=== PATIENT | female | born 1950 | race Caucasian/White ===

== ENCOUNTER 2021-03-09 10:58 | Outpatient (CLI) | payer MEDICARE ==
[2021-03-10 11:50] LABS: SARS-CoV-2 PCR by NAA Not Detected (NotDetected)
== END 2021-03-09 10:59 | disposition home or self-care (01) ==
LOC: CSHLAB 10:58
PROVIDERS: ATTEND Surgery
DX: Z20.822 Contact with and (suspected) exposure to COVID-19 (principal); C25.9 Malignant neoplasm of pancreas, unspecified
CPT/HCPCS: U0003; U0005

== ENCOUNTER 2021-03-11 05:47 | Day surgery (SDC) | payer MEDICARE ==
[2021-03-06 14:56] VITALS: BMI 18.8
[2021-03-11] MEDS ORDERED: Bupivacaine PF 0.5% 30 ML VIAL ONE (06:27)
[2021-03-11] MEDS ORDERED: EPINEPHrine 1 MG/ML AMP ONE (06:27)
[2021-03-11] MEDS ORDERED: Lidocaine 1% MPF 2 ML VIAL ONE (06:42)
[2021-03-11] MEDS ORDERED: Fentanyl 100 MCG/2 ML VIAL ONE (06:50)
[2021-03-11] MEDS ORDERED: PROPOFOL 20 ML ONE (06:50)
[2021-03-11] MEDS ORDERED: Ondansetron PF 4 MG/2 ML Vial ONE (06:51)
[2021-03-11] MEDS ORDERED: Dexamethasone 4 mg/ml Vial ONE (06:51)
[2021-03-11] MEDS ORDERED: Lidocaine 1% PF 5 ML VIAL ONE (06:51)
[2021-03-11] MEDS ORDERED: ceFAZolin 2 GM/Dextrose 50 ML IVPB ONE (06:58)
[2021-03-11] MEDS ORDERED: Acetaminophen 325 MG TAB PO PRN (07:46)
[2021-03-11] MEDS ORDERED: HYDROcodone/Acetaminophen 5/325 mg Tablet PO PRN (07:46)
== END 2021-03-11 08:30 | disposition home or self-care (01) ==
LOC: CSHSDC 05:47
PROVIDERS: ATTEND Surgery
DX: C25.9 Malignant neoplasm of pancreas, unspecified (principal)
CPT/HCPCS: 76000; C1788; J0171; J0690; J1100; J1642; J2405; J2704; J3010; S0020